=== PATIENT | female | born 1955 | race Hispanic/Latino ===

== ENCOUNTER → 2017-12-11 | Outpatient (CLI) | payer BC | END | disposition home or self-care (01) | LOC: RAH 10:49 | PROVIDERS: ATTEND Physician Assistant Medical | DX: N64.4 Mastodynia (principal) | CPT/HCPCS: 76641 ==

== ENCOUNTER → 2018-01-04 | Outpatient (CLI) | payer BC | END | disposition home or self-care (01) | LOC: RAH 12-21 08:39 | PROVIDERS: ATTEND Physician Assistant Medical | DX: N64.4 Mastodynia (principal) | CPT/HCPCS: 77066 ==